=== PATIENT | female | born 1965 | race Caucasian/White ===

== ENCOUNTER 2018-04-03 13:21 | Emergency (ER) | payer OTHER, BC ==
[~2018-04-03] VITALS: Ht 160 cm; Wt 82.4 kg
[~2018-04-03 13:21] MED LIST: LISINOPRIL20 MG PO; MOTRIN400 MG PO; PERCOCET 5/31 TABLET PO
[2018-04-03 15:28] VITALS: BP 113/67
== END 2018-04-03 15:29 | disposition home or self-care (01) ==
LOC: EME 13:21
PROC: 0H9HXZZ Drainage of Right Upper Leg Skin, External Approach (ICD-10-PCS; principal; 2018-04-03)
DX: L02.415 Cutaneous abscess of right lower limb (principal); E11.9 Type 2 diabetes mellitus without complications; Z88.5 Allergy status to narcotic agent
CPT/HCPCS: 87070; 87075; 87205; 99281; 99283

== ENCOUNTER 2018-04-05 08:01 | Emergency (ER) | payer OTHER, BC ==
[~2018-04-05] VITALS: Ht 160 cm; Wt 82.0 kg
[2018-04-05 08:55] VITALS: BP 103/82
== END 2018-04-05 08:59 | disposition home or self-care (01) ==
LOC: EME 08:01
DX: Z48.01 Encounter for change or removal of surgical wound dressing (principal); E11.9 Type 2 diabetes mellitus without complications; Z88.5 Allergy status to narcotic agent
CPT/HCPCS: 99281; 99284